=== PATIENT | male | born 1955 | race Two or more races ===

== ENCOUNTER 2019-05-30 10:49 | Inpatient (IN) | payer MEDICAID ==
[~2019-05-30] VITALS: Ht 185.4 cm; Wt 107.0 kg
[~2019-05-30 10:49] MED LIST: DEXL60CA3; FERR-7; FOLI400T34; LEVO100T8 PO
[2019-05-30] MEDS ORDERED: SODIUM CHLORIDE 0.9% 1,000 ML IV ONE ×2 (10:53)
[2019-05-30] MEDS ORDERED: OCTREOTIDE ACETATE 100 MCG in SODIUM CHL 0.9% 50 ML IV ONE (11:00)
[2019-05-30] MEDS ORDERED: PANTOPRAZOLE 40mg/50ML NS AE 50 ML IV ONE (11:00)
[2019-05-30 11:13] LABS: Basophils # (auto) 0.1 10 ^3/uL (0-0.2); Eosinophils # (auto) 0 10 ^3/uL (0-0.8); Eosinophils % (auto) 0.3 % (0.0-7.0); Lymphocytes # (auto) 3.4 10 ^3/uL (0.4-5.4); White Blood Cell 14.5 10^3/uL (4.4-10.8)
[2019-05-30 11:15] LABS: Basophils % (auto) 0.6 % (0.0-2.0); Hematocrit 27.6 % (41.0-53.0); Hemoglobin 8.8 g/dL (13.5-17.5); Lymphocytes % (auto) 23.3 % (10.0-50.0); Mean Corpuscular Hemoglobin 25.4 pg (28.0-32.0); Mean Corpuscular Volume 79.5 fL (80.0-100.0); Monocytes % (auto) 6.8 % (0.0-12.0); Platelet Count (auto) 216 10^3/uL (140-450); Red Blood Cells 3.47 10^6/uL (4.5-5.90)
[2019-05-30 11:22] LABS: Red Cell Distribution Width 23.1 % (11.8-14.3)
[2019-05-30 11:24] LABS: Albumin 2.4 g/dL (3.4-5.0); Anion Gap 16 (5-15); Calcium 8.1 mg/dL (8.5-10.1); Carbon Dioxide 13 mmol/L (21-32); Chloride 116 mmol/L (98-107); Glucose 122 mg/dL (74-106); Potassium 4.5 mmol/L (3.5-5.1); Sodium 145 mmol/L (136-145)
[2019-05-30 11:30] LABS: INR 1.24 (0.9-1.15); Partial Thromboplastin Time 27.8 sec (23.64-32.05)
[2019-05-30 11:31] LABS: Alanine Aminotransferase 19 U/L (16-61); Alkaline Phosphatase 73 U/L (45-117); Aspartate Aminotransferase 24 U/L (15-37); BUN/Creatinine Ratio 21.2; Bilirubin, Total 0.6 mg/dL (0.2-1.0); Blood Urea Nitrogen 39 mg/dL (7-18); GFR African American 48 mL/min; GFR Non-African American 40 mL/min
[2019-05-30] MEDS ORDERED: PROMETHAZINE HCL 25 MG/ML 1ML ONE (11:54)
[2019-05-30] MEDS ORDERED: PROMETHAZINE HCL 25 MG/ML 1ML IV ONE (12:00)
[2019-05-30] MEDS ORDERED: PIPERACILLIN-TAZOB 3.375GM 100 ML IV ONE (12:45)
[2019-05-30] MEDS ORDERED: OCTREOTIDE ACETATE 500 MCG in SODIUM CHL 0.9% 99 ML IV SCH (12:45)
[2019-05-30] MEDS ORDERED: NOREPINEPHRINE 8 MG/250ML KIT 250 ML IV ONE (12:47)
[2019-05-30] MEDS: NOREPINEPHRINE 8 MG/250ML KIT 250 ML IV SCH (13:01)
[2019-05-30 13:51] LABS: Lactic Acid w/Reflex 4.9 mmol/L (0.4-2.0)
[2019-05-30] MEDS ORDERED: METOCLOPRAMIDE HCL 5MG/ml INJ 2ml VIAL IV ONE ×2 (14:15→14:30)
[2019-05-30] MEDS ORDERED: METOCLOPRAMIDE HCL 5MG/ml INJ 2ml VIAL ONE (14:20)
[2019-05-30] MEDS ORDERED: phytonadione 10 MG in SODIUM CHL 0.9% 50 ML IV ONE (14:30)
[2019-05-30] MEDS ORDERED: NALOXONE HCL 0.4 MG/ML VIAL ONE (14:32)
[2019-05-30] MEDS ORDERED: MIDAZOLAM HCL 5 MG/ML-1ML VIAL ONE (14:32)
[2019-05-30] MEDS ORDERED: LIDOCAINE VISCOUS 2% 15ML UD ONE (14:32)
[2019-05-30] MEDS ORDERED: FLUMAZENIL 0.1 MG/ML INJ 10ML MDV IV ONE (14:32)
[2019-05-30] MEDS ORDERED: diphenhdrAMINE HCL 50 MG/1 ML VL ONE (14:33)
[2019-05-30] MEDS ORDERED: EPINEPHrine HCL 1 MG/10 ML SYRG ONE (14:36)
[2019-05-30] MEDS ORDERED: NITROGLYCERIN 0.4 MG SL TAB SL PRN (14:45)
[2019-05-30] MEDS ORDERED: MORPHINE SULF INJ 2 MG/ML SYRINGE 1ML IV PRN (14:45)
[2019-05-30] MEDS: fentaNYL CITRATE 100 MCG/2 ML VL ONE ×2 (14:51→14:56)
[2019-05-30] MEDS ORDERED: MIDAZOLAM HCL 5 MG/ML-1ML VIAL IV ONE (14:51)
[2019-05-30 15:14] VITALS: BP 84/53
[2019-05-30] MEDS ORDERED: levoFLOXacin 500MG 100 ML IV ONE (15:15)
[2019-05-30] MEDS ORDERED: PROMETHAZINE HCL 25 MG/ML 1ML IV PRN (15:15)
[2019-05-30 15:31] VITALS: BP 99/51
[2019-05-30] MEDS: SODIUM CHLORIDE 0.9% 1,000 ML IV SCH ×2 (16:06→23:10)
[2019-05-30 17:27] VITALS: BP 112/62
[2019-05-30 18:24] VITALS: BP 136/86
[2019-05-30 19:15] VITALS: BP 96/52
[2019-05-30 21:31] LABS: Hematocrit 27.4 % (41.0-53.0)
[2019-05-30] MEDS: PANTOPRAZOLE 40 MG/10 ML VIAL INJ IV SCH (22:00)
[2019-05-30] MEDS: metroNIDAZOLE 500MG/100ML 100 ML IV SCH (22:00)
[2019-05-31] VITALS (28 sets, daily range): BP systolic 93–149; BP diastolic 39–87
[2019-05-31 00:59] LABS: Hematocrit 25.7 % (41.0-53.0); Hemoglobin 8.3 g/dL (13.5-17.5)
[2019-05-31 05:30] LABS: Basophils # (auto) 0.1 10 ^3/uL (0-0.2); Eosinophils # (auto) 0.7 10 ^3/uL (0-0.8); Eosinophils % (auto) 5.9 % (0.0-7.0); Hemoglobin 8.1 g/dL (13.5-17.5); Nucleated Red Blood Cells % 0.3 %
[2019-05-31 05:32] LABS: Basophils % (auto) 1.3 % (0.0-2.0); Hematocrit 24.4 % (41.0-53.0); Lymphocytes # (auto) 4.2 10 ^3/uL (0.4-5.4); Mean Corpuscular Hemoglobin 26.4 pg (28.0-32.0); Mean Corpuscular Hgb Conc. 33.1 g/dL (32.0-36.0); Mean Corpuscular Volume 79.8 fL (80.0-100.0); Monocytes # (auto) 0.9 10 ^3/uL (0-1.3); Monocytes % (auto) 8.3 % (0.0-12.0); Neutrophils # (auto) 5.4 10 ^3/uL (1.6-8.6); Neutrophils % (auto) 47.5 % (37.0-80.0); Platelet Count (auto) 149 10^3/uL (140-450); Red Blood Cells 3.06 10^6/uL (4.5-5.90); White Blood Cell 11.4 10^3/uL (4.4-10.8)
[2019-05-31 05:40] LABS: Red Cell Distribution Width 21.6 % (11.8-14.3)
[2019-05-31 05:49] LABS: Albumin 2.2 g/dL (3.4-5.0); BUN/Creatinine Ratio 24.7; Calcium 7.6 mg/dL (8.5-10.1); Potassium 3.7 mmol/L (3.5-5.1)
[2019-05-31 05:52] LABS: Bilirubin, Total 0.8 mg/dL (0.2-1.0); Total Protein 5.4 g/dL (6.4-8.2)
[2019-05-31] MEDS: metroNIDAZOLE 500MG/100ML 100 ML IV SCH ×2 (06:00→14:07)
[2019-05-31] MEDS: SODIUM CHLORIDE 0.9% 1,000 ML IV SCH (07:02)
--- NOTE | 2019-05-31 07:45 | NUR ---
Admit to ICU YASMEEN GALLEGOS admitted to ICU via gurcarol on security monitor. Patient transferred to bed, connected to unit monitoring and weighed by bedscale. Patient oriented to PILAR WIGN RN primary RN, unit, room, bed, and unit policies regarding patient care and visiting hours. All questions and concerns addressed, patient verbalized understanding.
[2019-05-31] MEDS: LEVOTHYROXINE SODIUM 100 MCG TAB PO SCH (10:06)
[2019-05-31] MEDS: PANTOPRAZOLE 40 MG/10 ML VIAL INJ IV SCH (10:07)
[2019-05-31] MEDS: levoFLOXacin 500MG 100 ML IV SCH (10:07)
--- NOTE | 2019-05-31 10:33 | NUR ---
SPOKE TO DAUGHTER RAPHAEL UPDATED HER ON POC. ALL QUESTIONS ANSWERED.
[2019-05-31] MEDS: NOREPINEPHRINE 8 MG/250ML KIT 250 ML IV SCH (13:00)
--- NOTE | 2019-05-31 13:40 | NUR ---
DR. THAO HERE TO SEE PATIENT. SEE MD NOTES AND EMR FOR ANY NEW ORDERS.
--- NOTE | 2019-05-31 14:53 | NUR ---
DR. Pam MURDOCK HERE TO SEE PATIENT. SEE MD NOTES AND EMR FOR ANY NEW ORDER.
--- NOTE | 2019-05-31 16:45 | NUR ---
ICU pt transferred to floor YASMEEN GALLEGOS transferred to 222A via gurney AND on ekg monitor tech. All patient medications and personal belongings transferred with patient to receiving floor. Patient care transferred to KATHI AMIN.
--- NOTE | 2019-05-31 16:46 | NUR ---
RECEIVED PATIENT FROM ICU. PATIENT ORIENTED TO ROOM, CALL LIGHT BEDSIDE, BED IN LOCKED AND LOWEST POSITION. VS 96/43, 97.2, 96%, 76HR, 18RR. NO COMPLAINTS OF PAIN OR DISCOMFORT AT THIS TIME. WILL CONTINUE TO MONITOR.
--- NOTE | 2019-05-31 19:47 | NUR ---
RECEIVED REPORT FROM DAY RN POC REVIEWED
[2019-06-01] MEDS: metroNIDAZOLE 500MG/100ML 100 ML IV SCH ×4 (00:54→22:34)
[2019-06-01] MEDS: PANTOPRAZOLE 40 MG/10 ML VIAL INJ IV SCH ×3 (00:55→22:34)
[2019-06-01 05:00] VITALS: BP 89/57
[2019-06-01 06:05] LABS: Eosinophils # (auto) 0.9 10 ^3/uL (0-0.8); Hemoglobin 7.7 g/dL (13.5-17.5); Lymphocytes # (auto) 2.6 10 ^3/uL (0.4-5.4); Monocytes # (auto) 0.7 10 ^3/uL (0-1.3)
[2019-06-01 06:07] LABS: Basophils # (auto) 0 10 ^3/uL (0-0.2); Basophils % (auto) 0.5 % (0.0-2.0); Eosinophils % (auto) 10.7 % (0.0-7.0); Hematocrit 23.1 % (41.0-53.0); Mean Corpuscular Hemoglobin 26.4 pg (28.0-32.0); Mean Corpuscular Hgb Conc. 33.6 g/dL (32.0-36.0); Mean Corpuscular Volume 78.8 fL (80.0-100.0); Monocytes % (auto) 8.6 % (0.0-12.0); Neutrophils # (auto) 4.1 10 ^3/uL (1.6-8.6); Neutrophils % (auto) 49.2 % (37.0-80.0); Platelet Count (auto) 133 10^3/uL (140-450); Red Blood Cells 2.93 10^6/uL (4.5-5.90); White Blood Cell 8.4 10^3/uL (4.4-10.8)
[2019-06-01 06:23] LABS: Potassium 3.7 mmol/L (3.5-5.1)
[2019-06-01 06:32] LABS: BUN/Creatinine Ratio 20.9; Calcium 7.6 mg/dL (8.5-10.1)
--- NOTE | 2019-06-01 06:48 | NUR ---
REPORT GIVEN TO AM NURSE POC REVIEWED
[2019-06-01 09:00] VITALS: BP 83/47
[2019-06-01] MEDS: LEVOTHYROXINE SODIUM 100 MCG TAB PO SCH (10:54)
[2019-06-01] MEDS: levoFLOXacin 500MG 100 ML IV SCH (10:54)
--- NOTE | 2019-06-01 11:25 | NUR ---
Dr. Rodriguez/Cleared for DC Spoke with Dr. Rodriguez. He stated the patient was cleared to be D/Cd from his standpoint and for the patient to get a referral from his PCP to follow up with him. He also wants the patient to get up and walk around to make sure the patient is stable enough to go home.
[2019-06-01 13:00] VITALS: BP 120/72
--- NOTE | 2019-06-01 16:38 | NUR ---
Walked in hallway/walker Borrow walker from PT and walked with patient in the hallway. He walked from his room to the nurse's station and back to the room. No problems noted. Gait steady. Patient said he has a walker that he uses at home sometimes and he feels he will need to use it for a while once he is discharged.
[2019-06-01 17:53] VITALS: BP 102/57
--- NOTE | 2019-06-01 18:50 | NUR ---
PT IN BATHROOM BECAME WEAK NEEDED ASSISTANCE TO AMBULATE BACK TO BED WITH WALKER, BECAME SOB 2L GIVEN
--- NOTE | 2019-06-01 20:31 | NUR ---
RECEIVED REPORT FROM DAY RN POC REVIEWED
--- NOTE | 2019-06-01 20:45 | NUR ---
SPOKE TO DAUGHTER CONCERNING FATHERS PLAN FOR DISCHARGE, STATED THAT FATHER LIVES ALONE AND WANTS TO KNOW WHY FATHER IS FALLING SO MUCH
[2019-06-01 22:00] VITALS: BP 107/55
--- NOTE | 2019-06-01 22:43 | NUR ---
LAB AT PTS BEDSIDE
--- NOTE | 2019-06-01 23:15 | NUR ---
LAB CALLED AND STATED THAT PTS H/H IS HGB IS 4.6, AND HCT IS 14.3.
--- NOTE | 2019-06-01 23:22 | NUR ---
REDRAW OF LAB REQUESTED, LAB DRAWN FROM SLOW MIDLINE
--- NOTE | 2019-06-01 23:44 | NUR ---
LAB AT BEDSIDE FOR REDRAW
[2019-06-02] LABS: Basophils # (auto) 0.1 10 ^3/uL (0-0.2); Eosinophils # (auto) 0.8 10 ^3/uL (0-0.8); Eosinophils % (auto) 9.7 % (0.0-7.0); Hemoglobin 7.4 g/dL (13.5-17.5); Lymphocytes # (auto) 2.2 10 ^3/uL (0.4-5.4); Monocytes # (auto) 0.5 10 ^3/uL (0-1.3); Neutrophils # (auto) 4.3 10 ^3/uL (1.6-8.6)
[2019-06-02 00:02] LABS: Basophils % (auto) 1.1 % (0.0-2.0); Hematocrit 22.4 % (41.0-53.0); Lymphocytes % (auto) 28.4 % (10.0-50.0); Mean Corpuscular Hemoglobin 26.6 pg (28.0-32.0); Mean Corpuscular Hgb Conc. 33.2 g/dL (32.0-36.0); Monocytes % (auto) 6.4 % (0.0-12.0); Neutrophils % (auto) 54.4 % (37.0-80.0); Nucleated Red Blood Cells % 0.1 %; Platelet Count (auto) 117 10^3/uL (140-450); White Blood Cell 7.8 10^3/uL (4.4-10.8)
[2019-06-02 00:04] LABS: Red Cell Distribution Width 22.2 % (11.8-14.3)
[2019-06-02 00:30] LABS: Anion Gap 11 (5-15); Blood Urea Nitrogen 23 mg/dL (7-18); Calcium 7.7 mg/dL (8.5-10.1); Carbon Dioxide 15 mmol/L (21-32); Chloride 120 mmol/L (98-107); GFR African American 59 mL/min; GFR Non-African American 49 mL/min; Glucose 93 mg/dL (74-106); Potassium 3.6 mmol/L (3.5-5.1); Sodium 146 mmol/L (136-145)
--- NOTE | 2019-06-02 02:10 | NUR ---
RESTING COMFORTABLE CALL LIGHT WITHIN REACH BED ALARM INTACT, NO S/S OF BLEEDING
[2019-06-02] MEDS ORDERED: SODIUM FERR GLUC 62.5MG/5ML 125 MG in SODIUM CHL 0.9% 100 ML IV SCH (03:00)
--- NOTE | 2019-06-02 03:30 | NUR ---
ORDERS RECEIVED FROM DR. Pam MURDOCK
[2019-06-02] MEDS: SOD CHL 0.45% 1,000 ML IV SCH ×2 (04:20→12:45)
[2019-06-02 04:55] LABS: Urine Bacteria FEW /hpf (None Seen); Urine Blood Negative /uL (Negative); Urine Mucus FEW (None Seen); Urine Specific Gravity 1.011 (1.001-1.035); Urine WBC <1 /hpf (0 - 3)
[2019-06-02 05:00] VITALS: BP 125/62
[2019-06-02 05:55] LABS: Basophils # (auto) 0.1 10 ^3/uL (0-0.2); Basophils % (auto) 0.9 % (0.0-2.0); Eosinophils # (auto) 0.6 10 ^3/uL (0-0.8); Eosinophils % (auto) 9.6 % (0.0-7.0); Hemoglobin 7.4 g/dL (13.5-17.5); Lymphocytes % (auto) 30.2 % (10.0-50.0); Mean Corpuscular Hemoglobin 26.5 pg (28.0-32.0); Mean Corpuscular Hgb Conc. 29.7 g/dL (32.0-36.0); Monocytes # (auto) 0.6 10 ^3/uL (0-1.3); Monocytes % (auto) 8.2 % (0.0-12.0); Neutrophils # (auto) 3.4 10 ^3/uL (1.6-8.6); Neutrophils % (auto) 51.1 % (37.0-80.0); Platelet Count (auto) 121 10^3/uL (140-450); Red Blood Cells 2.81 10^6/uL (4.5-5.90); White Blood Cell 6.7 10^3/uL (4.4-10.8)
[2019-06-02 05:59] LABS: Red Cell Distribution Width 23.6 % (11.8-14.3)
[2019-06-02 06:09] LABS: BUN/Creatinine Ratio 13.9; Calcium 7.6 mg/dL (8.5-10.1); Potassium 3.6 mmol/L (3.5-5.1)
[2019-06-02] MEDS: metroNIDAZOLE 500MG/100ML 100 ML IV SCH (06:12)
--- NOTE | 2019-06-02 06:39 | NUR ---
SPOKE TO PHARMACY WILL SEND FERRLECIT 125 MG UP TO ME, MED NOT AVAILABLE DURING THE NIGHT
[2019-06-02] MEDS ORDERED: SODIUM CHL 0.9% IV SCH (06:47)
[2019-06-02] MEDS ORDERED: IRON SUCROSE COMPLEX IV SCH (06:47)
--- NOTE | 2019-06-02 06:49 | NUR ---
REPORT GIVEN TO AM NURSE POC REVIEWED
[2019-06-02] MEDS ORDERED: LEVOTHYROXINE SODIUM 100 MCG TAB PO SCH (07:00)
[2019-06-02 09:00] VITALS: BP 115/65
[2019-06-02] MEDS: levoFLOXacin 500MG 100 ML IV SCH (09:41)
[2019-06-02] MEDS: PANTOPRAZOLE 40 MG/10 ML VIAL INJ IV SCH (09:41)
[2019-06-02] MEDS ORDERED: FOLIC ACID 1 MG TAB PO SCH (10:00)
[2019-06-02] MEDS ORDERED: ALLO300T2 PO (10:34)
[2019-06-02] MEDS ORDERED: ASPI325T4 PO (10:34)
[2019-06-02] MEDS ORDERED: PROP60CA34 PO (10:34)
[2019-06-02] MEDS ORDERED: LIOT1TAB2 PO (10:34)
[2019-06-02] MEDS ORDERED: OMEP20TA PO (10:34)
[2019-06-02] MEDS ORDERED: COLC1CAP PO (10:34)
[2019-06-02] MEDS ORDERED: PANT40TA2 PO ×2 (10:34→15:09)
[2019-06-02] MEDS ORDERED: ERGO2000 PO (10:34)
[2019-06-02 13:00] VITALS: BP 121/62
[2019-06-02] MEDS ORDERED: FERR-7 PO (14:54)
[2019-06-02] MEDS ORDERED: PATIENTS OWN MEDICATION (Ergocalciferol (Vitamin D2) 50,000 UNIT) PO SCH (15:00)
[2019-06-02] MEDS ORDERED: ERGOCALCIFEROL 50,000 UNIT(1.25MG) CAP PO SCH (15:15)
--- NOTE | 2019-06-02 15:15 | NUR ---
home safety eval Spoke with Natalie regarding SS order. She gave a fax number for [facility] ( ). She said to fax the order, face sheet, and H&P to [facility] for the home safety eval and possible P.T. if our P.T. determines he needs it at home. Will fax everything after PT eval is complete here.
--- NOTE | 2019-06-02 15:20 | NUR ---
PT with patient PT currently evaluating patient prior to discharge.
--- NOTE | 2019-06-02 15:43 | NUR ---
P.T. ok to go home with HH PLeandro saw the patient and said he is ok to go home with home health. She said the patient has equipment at home. Will fax order, face sheet, and H&P to [facility] and work on discharge.
--- NOTE | 2019-06-02 16:11 | NUR ---
Faxed to [facility] This nurse faxed the order, H&P, and face sheet to [facility].
--- NOTE | 2019-06-02 18:16 | NUR ---
Discharge Went over discharge paperwork with patient. Prescriptions were sent to his pharmacy electronically by the MD. Removed IV and Midline intact with no problems. Removed telemetry and sent to ICU per hospital protocol. Removed all ID and other bands (fall, allergy, BBK). Requested and received taxi voucher. Called taxi. Took patient out to taxi in a wheelchair with all personal belongings.
[2019-06-02] MEDS ORDERED: COLCHICINE 0.6 MG CAP PO SCH (22:00)
[2019-06-03] MEDS ORDERED: LIOTHYRONINE SODIUM 10 MCG PO SCH (07:00)
--- NOTE | 2019-06-03 09:42 | NUR ---
Weekend manager location 06/02/19 1500 I received a page from nurse Rhoades letting me know that patient has order for home health. I asked nurse Rhoades to fax face sheet, order and H&P to [facility]. 06/03/19 I called [facility] and spoke with Janell, she said they are able to accept this patient. I faxed home health order to [facility]-asking for authorization for [facility].
[2019-06-03] MEDS ORDERED: ALLOPURINOL 300 MG TAB PO SCH (10:00)
[2019-06-03] MEDS ORDERED: PROPRANOLOL HCL 10 MG PO SCH (10:00)
[2019-06-03 10:54] LABS: Hepatitis B Surface Antibody Negative
[2019-06-03 11:26] LABS: Hepatitis A Total Antibody Positive
--- NOTE | 2019-06-03 11:26 | NUR ---
I received a call from [facility] program planner Rhona-auth number for [facility] is [phone].
[2019-06-03] MEDS ORDERED: IRON SUCROSE COMPLEX 200 MG in SODIUM CHL 0.9% 100 ML IV SCH (12:00)
[2019-06-03 13:43] LABS: Hepatitis B Core Total AB Negative
[2019-06-04 08:19] LABS: Hepatitis B Surface Antigen Negative (Negative)
[2019-06-04 08:21] LABS: Hepatitis C Antibody Positive (Negative)
== END 2019-06-02 18:15 | disposition home health service (06) | DRG 253 ==
LOC: ER 10:49 → EDBD 10:49 → OVERFLOW 10:50 → ICU WEST 05-31 07:56 → TELE-CENTR 05-31 16:30
PROVIDERS: ADMIT Internal Medicine; ATTEND Internal Medicine
PROC: 30233N1 Transfusion of Nonautologous Red Blood Cells into Peripheral Vein, Percutaneous Approach (ICD-10-PCS; 2019-05-30)
PROC: 30233K1 Transfusion of Nonautologous Frozen Plasma into Peripheral Vein, Percutaneous Approach (ICD-10-PCS; 2019-05-30)
PROC: 0DJ08ZZ Inspection of Upper Intestinal Tract, Via Natural or Artificial Opening Endoscopic (ICD-10-PCS; principal; 2019-05-30 14:15)
DX: K92.2 Gastrointestinal hemorrhage, unspecified (principal); D68.9 Coagulation defect, unspecified; D69.6 Thrombocytopenia, unspecified; E87.0 Hyperosmolality and hypernatremia; I95.9 Hypotension, unspecified; E44.1 Mild protein-calorie malnutrition; N18.3 Chronic kidney disease, stage 3 (moderate); D72.829 Elevated white blood cell count, unspecified; K44.9 Diaphragmatic hernia without obstruction or gangrene; K20.9 Esophagitis, unspecified; D50.9 Iron deficiency anemia, unspecified; E03.9 Hypothyroidism, unspecified; E78.5 Hyperlipidemia, unspecified; I12.9 Hypertensive chronic kidney disease with stage 1 through stage 4 chronic kidney disease, or unspecified chronic kidney disease; K76.0 Fatty (change of) liver, not elsewhere classified; M10.9 Gout, unspecified; K80.20 Calculus of gallbladder without cholecystitis without obstruction; Z95.1 Presence of aortocoronary bypass graft; W18.39XA Other fall on same level, initial encounter; Y93.89 Activity, other specified; Y92.89 Other specified places as the place of occurrence of the external cause; Z86.73 Personal history of transient ischemic attack (TIA), and cerebral infarction without residual deficits; Z87.442 Personal history of urinary calculi; I25.10 Atherosclerotic heart disease of native coronary artery without angina pectoris; Z88.0 Allergy status to penicillin; Z88.6 Allergy status to analgesic agent
CPT/HCPCS: 36415; 36430; 36600; 43235; 70450; 71045; 74176; 76705; 80048; 80053; 81001; 82140; 82805; 83540; 83550; 83605; 84484; 85014; 85018; 85025; 85045; 85610; 85730; 86038; 86704; 86706; 86708; 86803; 86850; 86900; 86901; 86920; 87040; 87081; 87340; 93005; 96365; 96367; 96375; 97163; 99291; C9113; G0378; J1756; J1956; J2250; J2543; J3430; J3490